=== PATIENT | female | born 1955 | race Asian ===

== ENCOUNTER 2018-06-01 05:35 | Inpatient (IN) ==
[2018-06-01] MEDS ORDERED: Chlorhexidine 4% Topical 120 APPLIC/120 ML Bottle TOPICAL SCH (06:45)
[2018-06-01] MEDS ORDERED: Bupivacaine/Epi PF 0.25% Inj 20 ML, Bupivacaine Liposo PF 1.3% Inj 20 ML, Sodium Chlor ... P-ARTICULR SCH ×2 (06:45)
[2018-06-01] MEDS ORDERED: Sodium Chlor 0.9% Inj 250 ML ONE (06:46)
[2018-06-01] MEDS ORDERED: Bupivacaine/Epinephrine PF Inj 0.5% 30 ML Vial ONE (06:57)
[2018-06-01] MEDS ORDERED: Bupivacaine/Epinephrine Inj 0.25% 50 ML Vial ONE (06:59)
[2018-06-01] MEDS ORDERED: TRANEXAMIC ACID IV.SIG SCH (07:00)
[2018-06-01] MEDS ORDERED: SODIUM CHLOR 0.9% IV.SIG SCH (07:00)
[2018-06-01] MEDS ORDERED: Metoprolol Tartrate 25 MG Tablet PO ONE (07:00)
[2018-06-01] MEDS ORDERED: Sodium Chlor 0.9% Inj 500 ML IV.CONT ONE (07:00)
[2018-06-01] MEDS ORDERED: Vancomycin Inj 1,000 MG in Sodium Chlor 0.9% Inj 250 ML IV.SIG SCH (07:00)
[2018-06-01] MEDS ORDERED: Chlorhexidine Gluconate 2% 1 Pack (2 Cloths) TOPICAL ONE (07:00)
[2018-06-01] MEDS ORDERED: ceFAZolin 2 GM Premix Inj 2 GM/50 ML PIGGYBACK IV.SIG SCH (07:00)
[2018-06-01] MEDS ORDERED: Sodium Chloride 0.9% 2 ML Flush PRN IV.FLUSH (07:20)
[2018-06-01] MEDS ORDERED: Phenylephrine/NS 1000 MCG/10ML Syringe IV.PUSH ONE (07:21)
[2018-06-01] MEDS ORDERED: Bisacodyl 10 MG Supp RECTAL PRN (07:46)
[2018-06-01] MEDS ORDERED: Post-op Orders (for Pharmacy) OTHER STA (07:46)
--- NOTE | 2018-06-01 07:49 | P.DCO ---
- Physical Therapy Physical Therapy: Gait training Knee: Total knee, Full weight bearing Canvas Knee Splint: Other (At night for 4 weeks) Left Lower Extremity Weight Bearing: Weight bearing as tolerated - Nursing RN: 3 days/week x 2 weeks Dressing changes: Do not change dressing (Unless saturated. If saturated, alcohol dressing daily) - Certification Need for Home Health services: I have seen patient Thomas Pugh on 06/01/18. My clinical findings support the need for the requested home health care services because: Need for Home Health Services: High risk of falls Homebound Certification: I certify that my clinical findings support that this patient is homebound because: Homebound Certification: Unsteady gait/balance
--- NOTE | 2018-06-01 09:28 | P.OP ---
- Preoperative Diagnosis (1) Osteoarthritis of left knee - Postoperative Diagnosis (1) Osteoarthritis of left knee Date of procedure: 06/01/18 Procedure: Left total knee replacement arthroplasty Anesthesia: GETA Surgeon: Addy Johnson MD Automobile Parker: KIRSTEN Roche Operation and Findings: EBL: 50 cc INDICATION: This patient presents with long-standing arthritis of the knee. Attachment record documents conservative measures. The patient now presents for surgical treatment. NOTE: Maria E Govea PA-C was present for the entire surgical procedure as my physiotherapy assistant. In my medical opinion her skill and care was necessary for proper management of this patient. TOURNIQUET TIME: 65 minutes COMPANY: [employer] FEMUR: Size 5, left, posterior stabilized TIBIA: Size 4, fixed-bearing PATELLA: 32 mm POLYETHYLENE INSERT: 10 mm PROCEDURE: This patient was brought the operating room and anesthetized in the supine position. The patient was positioned supine on the table. The tourniquet was placed about the thigh, and the leg was scrubbed with alcohol followed by Hibiclens followed by ChloraPrep and draped sterilely. A timeout was done, and antibiotics were given. After exsanguination the tourniquet was inflated to 250 mmHg. An anterior incision was made and a median parapatellar arthrotomy was performed. The patella was released laterally and subluxed allowing freehand cut of the patella which was then sized. A metal cap was placed over the exposed patellar surface for protection. A pilot plant research technician hole was placed in the distal femur allowing a 5 valgus cut removing 10 mm from the distal femur. Anterior posterior and chamfer cuts were made. The posterior stabilize osteotomy was made. The attention was directed to the tibia. Retractors were positioned. The external alignment guide was used allowing the lateral tibia to be used as referencing guide and cut utilizing an oscillating saw taking care to avoid any injury to the surrounding soft tissues. This was sized properly. Trial reduction showed that the insert fit nicely. The patient had range of motion extension 0 flexion 120. A medial release was not necessary. The bony surfaces prepared. On the back table 2 packets of methylmethacrylate were mixed. The components were cemented. Excess cement was removed. The tourniquet let down and hemostasis was controlled. The final plastic insert was inserted. Range of motion was the same as previously noted. A drain was brought through a separate stab incision. The arthrotomy was repaired with interrupted #1 Vicryl suture, subcutaneous tissue 2-0 Vicryl suture and skin with metallic simone A sterile dressing was applied. Sponge counts, needle counts and instrument counts were all correct. The patient tolerated procedure well and was taken to recovery in satisfactory condition. FINDINGS: There was severe osteoarthritis. Large circumferential osteophytes were noted. A large posterior osteophyte was seen posterior on the lateral side. The final solution appeared to be excellent.
[2018-06-01] MEDS ORDERED: fentaNYL Citrate Inj 100 MCG/2 ML Ampul ONE (10:03)
[2018-06-01] MEDS ORDERED: *Meperidine Inj 25 MG/ML Vial PERIprocedural Use ONLY ONE (10:20)
--- NOTE | 2018-06-01 10:55 | XR ---
EXAM DATE: 06/01/2018 10:51 AM EST AGE/SEX: 62 years / Female INDICATIONS: Post op left knee surgery. CLINICAL DATA: This is the patient's initial encounter. Patient reports that signs and symptoms have been present for 1 day and indicates a pain score of Nonresponsive. MEDICAL/SURGICAL HISTORY: Non-responsive. Non-responsive. COMPARISON: . FINDINGS: Total knee arthroplasty is in satisfactory position. The alignment is anatomic. CONCLUSION: Postsurgical changes as above. Electronically signed by: Oumar Cottrell MD 06/01/2018 10:54 AM EST
[2018-06-01] MEDS ORDERED: Morphine Inj 4 MG/ML Vial IV.PUSH PRN (12:00)
[2018-06-01] MEDS: ceFAZolin 1 GM Premix Inj 1 GM/50 ML FROZ.PIGGY IV.SIG SCH ×2 (13:00→18:12)
[2018-06-01] MEDS: Montelukast 10 MG Tablet PO SCH (17:26)
[2018-06-01] MEDS: Senna/Docusate Sodium 8.6/50 MG Tablet PO SCH (21:16)
[2018-06-01] MEDS: Zolpidem Tartrate 5 MG Tablet PO SCH (21:16)
[2018-06-01] MEDS: Escitalopram 10 MG Tablet PO SCH (21:17)
[2018-06-01] MEDS: Multivitamin/Minerals Therapeutic Tablet PO SCH (21:18)
[2018-06-01] MEDS: Sodium Chloride 0.9% 2 ML Flush BID IV.FLUSH SCH (22:11)
[2018-06-02] MEDS: ceFAZolin 1 GM Premix Inj 1 GM/50 ML FROZ.PIGGY IV.SIG SCH (00:36)
[2018-06-02] MEDS: Senna/Docusate Sodium 8.6/50 MG Tablet PO SCH ×2 (09:24→21:19)
[2018-06-02] MEDS: Multivitamin/Minerals Therapeutic Tablet PO SCH ×2 (09:25→21:19)
[2018-06-02] MEDS: Sodium Chloride 0.9% 2 ML Flush BID IV.FLUSH SCH ×2 (09:27→21:47)
--- NOTE | 2018-06-02 13:32 | P.PNOP ---
Subjective Interval history: Patient does not speak singaporean. She is accompanied by her son who speaks little singaporean. He states she has pain but can not articulate further. Patient does not appear in distress. RN states she did as expected through the evening. Physical Exam Vital signs: Vital Signs 06/01/18 15:52 06/01/18 20:00 06/01/18 21:21 Temperature 97.8 F 97.4 F L Pulse Rate 69 72 Respiratory Rate 18 20 18 Blood Pressure 137/68 114/59 L Pulse Oximetry 99 96 06/01/18 21:51 06/01/18 23:30 06/02/18 00:00 Temperature 97.6 F Pulse Rate 71 Respiratory Rate 18 18 20 Blood Pressure 103/56 L Pulse Oximetry 94 L 06/02/18 04:00 06/02/18 05:25 06/02/18 05:55 Temperature 98.2 F Pulse Rate 72 Respiratory Rate 20 18 18 Blood Pressure 94/51 L Pulse Oximetry 95 06/02/18 08:00 Temperature 97.8 F Pulse Rate 69 Respiratory Rate 18 Blood Pressure 111/51 L Pulse Oximetry 95 Intake & Output 06/01/18 06/02/18 06/02/18 18:59 06:59 18:59 Intake Total 1650 / 1650 1220 / 1220 Output Total 1050 / 1050 Balance 600 / 600 1220 / 1220 Weight 69.4 kg Intake: IV 50 / 50 1100 / 1100 LR 1000 mL Inj 1,000 ML @ 80 1000 / 1000 mls/hr IV.CONT .[id number] [facility] Rx# :[id number] Ancef 1 GM Premix Inj 1 gm In 50 / 50 100 / 100 50 ml @ 100 mls/hr IV.SIG Q6H [facility] Rx#:[id number] Oral 120 / 120 Anesthesia Amount 1600 / 1600 Output: Estimated Blood Loss 50 / 50 Urine Amount (Catheter) 1000 / 1000 Straight 1000 / 1000 Other: # Voids 3 1 Date of Last Bowel Movement 05/31/18 Weight On Admission 63.3 kg Narrative: Laying in bed NAD With son LLE Knee dressing c/d/i, mild warmth, no erythema +motor at, +sens, +nvi Neg homans - Constitutional no acute distress - Urinary Catheter Management Straight Cath placed during this visit: yes, but has since been removed by the nurse Reason for continuing: Not indwelling catheter Insertion date: 06/01/18 Insertion time: 10:15 Removal date: 06/01/18 Removal time: 10:45 Results - Procedures Left total knee arthroplasty Assessment and Plan - Ortho Post Op Day # 1 - Assessment and Plan pod#1 s/p L TKA Difficulty communicating due to language barrier. She appears to be in moderate pain. Hold discharge until tomorrow - home w [facility]. PT - WBAT. L TKA. ASA 81mg. Hold dressing changes unless saturated. PO pain meds as needed. Ice bid. F/U in 2 weeks as scheduled.
[2018-06-02] MEDS: Montelukast 10 MG Tablet PO SCH (19:54)
[2018-06-02] MEDS: Escitalopram 10 MG Tablet PO SCH (21:18)
[2018-06-02] MEDS: Zolpidem Tartrate 5 MG Tablet PO SCH (21:19)
[2018-06-03] MEDS: Senna/Docusate Sodium 8.6/50 MG Tablet PO SCH (09:56)
[2018-06-03] MEDS: Multivitamin/Minerals Therapeutic Tablet PO SCH (09:56)
[2018-06-03] MEDS: Sodium Chloride 0.9% 2 ML Flush BID IV.FLUSH SCH (09:58)
[2018-06-03 13:45] VITALS: BP 102/52; PULSE 65; RESP 18; TEMP 97.3; O2SAT 95
== END 2018-06-03 15:06 | disposition home health service (06) ==
LOC: HSDI 05:35 → N06 11:00
PROVIDERS: ADMIT Orthopaedic Surgery Orthopaedic Surgery of the Spine; ATTEND Orthopaedic Surgery Orthopaedic Surgery of the Spine

== ENCOUNTER 2018-06-08 19:23 | Inpatient (IN) ==
--- NOTE | 2018-06-08 20:14 | ED ---
HPI General Chief complaint: Fever Stated complaint: Knee Pain Time Seen by Provider: 06/08/18 19:56 Source: patient and family Limitations: no limitations History of Present Illness HPI narrative: The patient is a 62 year old female who presents to the [facility] emergency department with a history of reportedly feeling unwell since yesterday. She is recently postop status post left knee replacement on June 01, [address] Addy Johnson. Her follow-up appointment is scheduled for June 14. The patient reports that since yesterday she developed swelling, pain, increased ecchymosis down into the calf, ankle, and foot. She denies any new injuries. She reports that she has had subjective fevers and her home health nurse earlier today took her temperature which was elevated to 101. She reports that since having the surgery she is on a low-dose aspirin daily. She is not on any other anticoagulation. She reports taking hydrocodone as needed for pain. She is not on any other medications. She reports that since having the surgery she has noticed that when she coughs she has a pain in the left lateral chest. She denies having any shortness of breath. On review of systems otherwise, the patient denies having any congestion, neck pain, abdominal pain, vomiting, or neurologic symptoms. Patient denies having any dysuria or urinary urgency, however she does report having urinary frequency recently. The patient additionally reports having a single episode of loose stools earlier today. Related Data Home Medications Medication Instructions Recorded Confirmed hydrocodone-acetaminophen 1 tab PO BID PRN 05/27/18 06/08/18 Previous Rx's Medication Instructions Recorded aspirin 81 mg PO BID #60 tab 06/01/18 hydrocodone-acetaminophen 1 tab PO Q4H PRN #42 tab 06/01/18 Allergies Allergy/AdvReac Type Severity Reaction Status Date / Time meloxicam [From Mobic] Allergy Intermediate Itching Verified 06/08/18 19:31 Review of Systems ROS: all other systems reviewed are negative [facility] Social History Social History Substance History: No History of Abuse Second Hand Smoke Exposure: No Smoking Status: Never smoker How Often Do You Have a Drink Containing Alcohol: Never Recent Travel in [facility] within the Last 8 Weeks: No Recent Out of Country Travel within the Last 8 Weeks: No Exam Const General: cooperative, no acute distress and well developed Nutritional Appearance: well nourished Orientation: alert, awake and oriented x3 HENMT Head: normocephalic and atraumatic Nose: no nasal discharge and no epistaxis Mouth: moist mucous membranes Eyes Sclera: normal sclerae Pupils: PERRL Neck Neck: trachea midline and no JVD Chest Chest: no tenderness Resp Effort & Inspection: no use of accessory muscles Auscultation: clear to auscultation bilaterally Cardio Rate: regular rate Rhythm: regular rhythm Heart Sounds: no murmurs GI Inspection: non-distended Palpation: soft, no hepatosplenomegaly and nontender Back/Spine/Pelvis Back: no CVA tenderness Skin General: dry skin (warm) Neuro General: alert, awake and other (Grossly non-focal.) Speech: speech normal Motor: no movement abnormalities noted Extrem General: normal to inspection (2+ pulses in all 4 extremities.), no calf tenderness, no clubbing, no cyanosis and edema (The patient has 2+ pitting edema of the left lower extremity on exam with ecchymosis from the thigh down to the foot. The patient has soft compartments. The patient has intact sensation over all digits. The patient has less than 3-second capillary refill. The patient does however have calf tende) Laterality: bilaterally Psych Mood: congruent mood Affect: normal affect Judgment: judgment good Course Initial Documented Vital Signs Temperature 98.6 F 06/08/18 19:26 Pulse Rate 68 06/08/18 19:26 Respiratory Rate 16 06/08/18 19:26 Blood Pressure 143/63 H 06/08/18 19:26 Pulse Oximetry 100 06/08/18 19:26 Last Documented Vital Signs Temperature 97.7 F 06/10/18 07:52 Pulse Rate 60 06/10/18 07:52 Respiratory Rate 16 06/10/18 07:52 Blood Pressure 159/70 H 06/10/18 07:52 Pulse Oximetry 98 06/10/18 07:52 Medical Decision Making MDM Narrative Medical decision making narrative: During the course of the patient's emergency department visit, the patient's history, examination, and differential diagnosis were reviewed with the patient. The patient was placed on a monitor worker with oximetry and frequent blood pressure monitoring. The patient had IV access obtained and blood work sent for analysis. Diagnostic evaluation was started regarding the patient's increased left leg pain and swelling. The patient was initially provided normal saline IV fluids, broad-spectrum antibiotic to include Zosyn and vancomycin. The patient's diagnostic studies are remarkable for white count of 5.2, hemoglobin 8.7, platelets 328.9 monocytes, PT PTT within normal limits, chemistry is remarkable for an alk phos of 140, CPK 65, troponin less than 0.02 , C-reactive protein 3.5, lipase within normal limits. Lactic acid is 1.0 urinalysis is unremarkable patient's chest x-ray showed no acute cardiopulmonary disease, left leg Doppler reveals no evidence of DVT.. The patient's case including history, pertinent physical examination findings, and laboratory studies were discussed with Dr. Rueda. It was agreed that the patient would be admitted to the [facility] hospitalist service. The patient's results were discussed with the patient, including the plan of care. I explained that further testing and/ or monitoring is indicated based on the patient's history, examination, and/ or laboratory findings. Therefore, I recommended admission for additional evaluation. The patient expressed understanding and was agreeable with this plan. The patient was admitted to the hospital in stable condition and sent to a bed under the care of the [facility] hospitalist service.. Medical Screen Exam Complete: Yes Emergency Medical Condition: Yes Differential Diagnosis Differential Diagnosis: Cellulitis, versus hardware infection, versus DVT Medical Records Medical records reviewed: Yes I reviewed the patient's medical records. Lab Data Lab results reviewed: Yes I reviewed the patient's lab results. Result diagrams: 06/10/18 03:28 06/10/18 03:28 Lab Results 06/08/18 06/08/18 06/08/18 Range/Units 20:15 20:30 20:30 WBC 5.2 (4.0-11.0) th/mm3 RBC 2.86 L (4.00-5.30) mil/mm3 Hgb 8.7 L (11.6-15.3) gm/dL Hct 25.3 L (35.0-46.0) % MCV 88.7 (80.0-100.0) fL MCH 30.4 (27.0-34.0) pg MCHC 34.2 (32.0-36.0) % RDW 14.2 (11.6-17.2) % Plt Count 320 (150-450) th/mm3 MPV 7.5 (7.0-11.0) fL Neut % (Auto) 56.4 (16.0-70.0) % Lymph % (Auto) 30.9 (9.0-44.0) % Baker % (Auto) 8.9 H (0.0-8.0) % Eos % (Auto) 3.3 (0.0-4.0) % Baso % (Auto) 0.5 (0.0-2.0) % Neut # (Auto) 2.9 (1.8-7.7) th/mm3 Lymph # (Auto) 1.6 (1.0-4.8) th/mm3 Baker # (Auto) 0.5 (0.0-0.9) th/mm3 Eos # (Auto) 0.2 (0.0-0.4) th/mm3 Baso # (Auto) 0.0 (0.0-0.2) th/mm3 WBC Differential . Differential Comment Auto diff final ESR (0-30) mm/hr PT 10.3 (9.8-11.6) sec INR 1.0 Ratio APTT 28.7 (23.4-31.7) sec Sodium (136-145) meq/L Potassium (3.5-5.1) meq/L Chloride (98-107) meq/L Carbon Dioxide (21.0-32.0) meq/L Anion Gap (5-15) meq/L BUN (7-18) mg/dL Creatinine (0.50-1.00) mg/dL Estimated GFR (>89) mL/min Random Glucose (74-106) mg/dL Lactic Acid (0.4-2.0) mmol/L Calcium (8.5-10.1) mg/dL Magnesium (1.5-2.5) mg/dL Total Bilirubin (0.2-1.0) mg/dL AST (15-37) U/L ALT (10-53) U/L Alkaline Phosphatase (45-117) U/L Total Creatine Kinase (26-192) U/L Troponin I (0.02-0.05) ng/mL C-Reactive Protein (0.00-0.30) mg/dL Total Protein (6.4-8.2) g/dL Albumin (3.4-5.0) g/dL Lipase (73-393) U/L Urine Color Colorless (Yellw/Straw) Urine Clarity Clear (Clear) Urine pH 7.0 (5.0-8.5) Ur Specific [place] 1.002 (1.002-1.035) Urine Protein Negative (Neg-Trace) mg/dL Urine Glucose (UA) Negative (Negative) mg/dL Urine Ketones Negative (Negative) mg/dL Urine Occult Blood Negative (Negative) Urine Nitrate Negative (Negative) Urine Bilirubin Negative (Negative) Urine Urobilinogen Less than 2 (Less than 2) mg/dL Ur Leukocyte Esterase Small H (Negative) Urine WBC 1 (0-5) /hpf Ur Squamous Epith Cells <1 (0-5) /hpf Urine Bacteria Rare H (None) /hpf Urine Mucus Few H (Occasional) /lpf Micro UA Comment Culture not ind Ur Microscopic Review Not Reportable Urine Culture Comments Culture not ind Blood Type Antibody Screen MTS Gel Crossmatch Bld Prod Order Comment 06/08/18 06/08/18 06/08/18 Range/Units 20:30 20:30 20:30 WBC (4.0-11.0) th/mm3 RBC (4.00-5.30) mil/mm3 Hgb (11.6-15.3) gm/dL Hct (35.0-46.0) % MCV (80.0-100.0) fL MCH (27.0-34.0) pg MCHC (32.0-36.0) % RDW (11.6-17.2) % Plt Count (150-450) th/mm3 MPV (7.0-11.0) fL Neut % (Auto) (16.0-70.0) % Lymph % (Auto) (9.0-44.0) % Baker % (Auto) (0.0-8.0) % Eos % (Auto) (0.0-4.0) % Baso % (Auto) (0.0-2.0) % Neut # (Auto) (1.8-7.7) th/mm3 Lymph # (Auto) (1.0-4.8) th/mm3 Baker # (Auto) (0.0-0.9) th/mm3 Eos # (Auto) (0.0-0.4) th/mm3 Baso # (Auto) (0.0-0.2) th/mm3 WBC Differential Differential Comment ESR 85 H (0-30) mm/hr PT (9.8-11.6) sec INR Ratio APTT (23.4-31.7) sec Sodium 139 (136-145) meq/L Potassium 4.1 (3.5-5.1) meq/L Chloride 104 (98-107) meq/L Carbon Dioxide 25.9 (21.0-32.0) meq/L Anion Gap 9 (5-15) meq/L BUN 15 (7-18) mg/dL Creatinine 0.67 (0.50-1.00) mg/dL Estimated GFR 89 (>89) mL/min Random Glucose 99 (74-106) mg/dL Lactic Acid 1.0 (0.4-2.0) mmol/L Calcium 8.6 (8.5-10.1) mg/dL Magnesium 2.4 (1.5-2.5) mg/dL Total Bilirubin 0.8 (0.2-1.0) mg/dL AST 20 (15-37) U/L ALT 29 (10-53) U/L Alkaline Phosphatase 140 H (45-117) U/L Total Creatine Kinase 65 (26-192) U/L Troponin I Less than 0.02 L (0.02-0.05) ng/mL C-Reactive Protein 3.50 H (0.00-0.30) mg/dL Total Protein 7.7 (6.4-8.2) g/dL Albumin 3.4 (3.4-5.0) g/dL Lipase 83 (73-393) U/L Urine Color (Yellw/Straw) Urine Clarity (Clear) Urine pH (5.0-8.5) Ur Specific [place] (1.002-1.035) Urine Protein (Neg-Trace) mg/dL Urine Glucose (UA) (Negative) mg/dL Urine Ketones (Negative) mg/dL Urine Occult Blood (Negative) Urine Nitrate (Negative) Urine Bilirubin (Negative) Urine Urobilinogen (Less than 2) mg/dL Ur Leukocyte Esterase (Negative) Urine WBC (0-5) /hpf Ur Squamous Epith Cells (0-5) /hpf Urine Bacteria (None) /hpf Urine Mucus (Occasional) /lpf Micro UA Comment Ur Microscopic Review Urine Culture Comments Blood Type Antibody Screen MTS Gel Crossmatch Bld Prod Order Comment 06/09/18 06/09/18 06/09/18 Range/Units 07:43 07:43 16:46 WBC 4.2 (4.0-11.0) th/mm3 RBC 2.47 L (4.00-5.30) mil/mm3 Hgb 7.7 L (11.6-15.3) gm/dL Hct 22.2 L (35.0-46.0) % MCV 90.1 (80.0-100.0) fL MCH 31.1 (27.0-34.0) pg MCHC 34.5 (32.0-36.0) % RDW 14.1 (11.6-17.2) % Plt Count 282 (150-450) th/mm3 MPV 7.6 (7.0-11.0) fL Neut % (Auto) 46.5 (16.0-70.0) % Lymph % (Auto) 39.5 (9.0-44.0) % Baker % (Auto) 9.5 H (0.0-8.0) % Eos % (Auto) 3.9 (0.0-4.0) % Baso % (Auto) 0.6 (0.0-2.0) % Neut # (Auto) 2.0 (1.8-7.7) th/mm3 Lymph # (Auto) 1.7 (1.0-4.8) th/mm3 Baker # (Auto) 0.4 (0.0-0.9) th/mm3 Eos # (Auto) 0.2 (0.0-0.4) th/mm3 Baso # (Auto) 0.0 (0.0-0.2) th/mm3 WBC Differential . Differential Comment Auto diff final ESR (0-30) mm/hr PT (9.8-11.6) sec INR Ratio APTT (23.4-31.7) sec Sodium 141 (136-145) meq/L Potassium 3.6 (3.5-5.1) meq/L Chloride 107 (98-107) meq/L Carbon Dioxide 27.7 (21.0-32.0) meq/L Anion Gap 6 (5-15) meq/L BUN 10 (7-18) mg/dL Creatinine 0.66 (0.50-1.00) mg/dL Estimated GFR Greater than 89 (>89) mL/min Random Glucose 87 (74-106) mg/dL Lactic Acid (0.4-2.0) mmol/L Calcium 7.9 L (8.5-10.1) mg/dL Magnesium (1.5-2.5) mg/dL Total Bilirubin (0.2-1.0) mg/dL AST (15-37) U/L ALT (10-53) U/L Alkaline Phosphatase (45-117) U/L Total Creatine Kinase (26-192) U/L Troponin I (0.02-0.05) ng/mL C-Reactive Protein (0.00-0.30) mg/dL Total Protein (6.4-8.2) g/dL Albumin (3.4-5.0) g/dL Lipase (73-393) U/L Urine Color (Yellw/Straw) Urine Clarity (Clear) Urine pH (5.0-8.5) Ur Specific [place] (1.002-1.035) Urine Protein (Neg-Trace) mg/dL Urine Glucose (UA) (Negative) mg/dL Urine Ketones (Negative) mg/dL Urine Occult Blood (Negative) Urine Nitrate (Negative) Urine Bilirubin (Negative) Urine Urobilinogen (Less than 2) mg/dL Ur Leukocyte Esterase (Negative) Urine WBC (0-5) /hpf Ur Squamous Epith Cells (0-5) /hpf Urine Bacteria (None) /hpf Urine Mucus (Occasional) /lpf Micro UA Comment Ur Microscopic Review Urine Culture Comments Blood Type AB Positive Antibody Screen Negative MTS Gel Crossmatch See Detail Bld Prod Order Comment 06/10/18 06/10/18 Range/Units 03:28 03:28 WBC 4.7 (4.0-11.0) th/mm3 RBC 3.45 L (4.00-5.30) mil/mm3 Hgb 10.5 L D (11.6-15.3) gm/dL Hct 30.3 L (35.0-46.0) % MCV 87.6 (80.0-100.0) fL MCH 30.4 (27.0-34.0) pg MCHC 34.7 (32.0-36.0) % RDW 14.7 (11.6-17.2) % Plt Count 297 (150-450) th/mm3 MPV 7.5 (7.0-11.0) fL Neut % (Auto) 63.9 (16.0-70.0) % Lymph % (Auto) 23.7 (9.0-44.0) % Baker % (Auto) 8.5 H (0.0-8.0) % Eos % (Auto) 3.3 (0.0-4.0) % Baso % (Auto) 0.6 (0.0-2.0) % Neut # (Auto) 3.0 (1.8-7.7) th/mm3 Lymph # (Auto) 1.1 (1.0-4.8) th/mm3 Baker # (Auto) 0.4 (0.0-0.9) th/mm3 Eos # (Auto) 0.2 (0.0-0.4) th/mm3 Baso # (Auto) 0.0 (0.0-0.2) th/mm3 WBC Differential . Differential Comment Auto diff final ESR (0-30) mm/hr PT (9.8-11.6) sec INR Ratio APTT (23.4-31.7) sec Sodium 141 (136-145) meq/L Potassium 3.7 (3.5-5.1) meq/L Chloride 107 (98-107) meq/L Carbon Dioxide 27.5 (21.0-32.0) meq/L Anion Gap 7 (5-15) meq/L BUN 10 (7-18) mg/dL Creatinine 0.62 (0.50-1.00) mg/dL Estimated GFR Greater than 89 (>89) mL/min Random Glucose 118 H (74-106) mg/dL Lactic Acid (0.4-2.0) mmol/L Calcium 8.1 L (8.5-10.1) mg/dL Magnesium 2.3 (1.5-2.5) mg/dL Total Bilirubin (0.2-1.0) mg/dL AST (15-37) U/L ALT (10-53) U/L Alkaline Phosphatase (45-117) U/L Total Creatine Kinase (26-192) U/L Troponin I (0.02-0.05) ng/mL C-Reactive Protein (0.00-0.30) mg/dL Total Protein (6.4-8.2) g/dL Albumin (3.4-5.0) g/dL Lipase (73-393) U/L Urine Color (Yellw/Straw) Urine Clarity (Clear) Urine pH (5.0-8.5) Ur Specific [place] (1.002-1.035) Urine Protein (Neg-Trace) mg/dL Urine Glucose (UA) (Negative) mg/dL Urine Ketones (Negative) mg/dL Urine Occult Blood (Negative) Urine Nitrate (Negative) Urine Bilirubin (Negative) Urine Urobilinogen (Less than 2) mg/dL Ur Leukocyte Esterase (Negative) Urine WBC (0-5) /hpf Ur Squamous Epith Cells (0-5) /hpf Urine Bacteria (None) /hpf Urine Mucus (Occasional) /lpf Micro UA Comment Ur Microscopic Review Urine Culture Comments Blood Type Antibody Screen MTS Gel Crossmatch Bld Prod Order Comment Imaging Data Radiologist's impression: Chest X-Ray 06/08/18 20:06 CONCLUSION: The lungs are clear. Venous Doppler Study 06/08/18 20:06 CONCLUSION: 1. The study is negative for lower extremity deep venous thrombosis. Knee X-Ray 06/09/18 00:00 CONCLUSION: Soft tissue swelling without significant joint effusion ECG Data Attestation: I personally reviewed and interpreted this ECG as follows: Interpretation: The patient had a EKG done on arrival. The patient's EKG shows a sinus rhythm heart rate of 61, QRS duration 82 ms, QTC [address] segment elevation. T waves are flattened in lead III, inverted in V2. Discharge Plan Discharge Disposition Patient Disposition: 30 Still Patient Discharge Details Diagnosis: Postoperative infection Physicians Team ED Provider: Ambika Hartley Primary Care Provider: Staci Crawford Attending Provider: Branden Crowley Other Providers: Wily Morse ; [facility] Discharge Interventions Interventions: ED Discharge Assessment Last Done: 06/09/18 00:39 Status ED Status: Left Department Discharge Information Discharge Date/Time: 06/09/18 00:46
--- NOTE | 2018-06-08 20:48 | XR ---
EXAM DATE: 06/08/2018 8:42 PM EST AGE/SEX: 62 years / Female INDICATIONS: Shortness of breath, dizziness. Patient also complaining of left knee pain. CLINICAL DATA: This is the patient's initial encounter. Patient reports that signs and symptoms have been present for 1 day and indicates a pain score of 7/10. MEDICAL/SURGICAL HISTORY: None. None. COMPARISON: No prior exams available for comparison. FINDINGS: A single AP view of the chest demonstrates the lungs to be symmetrically aerated without evidence of mass, infiltrate or effusion. The cardiomediastinal contours are unremarkable. Osseous structures a re intact. CONCLUSION: The lungs are clear. Electronically signed by: Josse Schmidt MD 06/08/2018 8:47 PM EST
[2018-06-08 21:09] LABS: Baso % (Auto) 0.5 % (0.0-2.0); Eos # (Auto) 0.2 th/mm3 (0.0-0.4); Eos % (Auto) 3.3 % (0.0-4.0); Hematocrit 25.3 % (35.0-46.0); Hemoglobin 8.7 gm/dL (11.6-15.3); Lymph # (Auto) 1.6 th/mm3 (1.0-4.8); Lymph % (Auto) 30.9 % (9.0-44.0); Mean Corpuscular HGB Conc 34.2 % (32.0-36.0); Mean Corpuscular Hemoglobin 30.4 pg (27.0-34.0); Mean Corpuscular Volume 88.7 fL (80.0-100.0); Mean Platelet Volume 7.5 fL (7.0-11.0); Mono # (Auto) 0.5 th/mm3 (0.0-0.9); Mono % (Auto) 8.9 % (0.0-8.0); Neut # (Auto) 2.9 th/mm3 (1.8-7.7); Neut % (Auto) 56.4 % (16.0-70.0); Platelet Count 320 th/mm3 (150-450); Red Blood Count 2.86 mil/mm3 (4.00-5.30); Red Cell Distribution Width 14.2 % (11.6-17.2); White Blood Count 5.2 th/mm3 (4.0-11.0)
[2018-06-08 21:14] LABS: Bacteria,Urine Rare /hpf; Bilirubin,Urine Negative (Negative); Clarity,Urine Clear (Clear); Color,Urine Colorless (Yellw/Straw); Glucose,Urine (UA) Negative (Negative); Leukocyte Esterase,Urine Small (Negative); Mucus,Urine Few /lpf (Occasional); Nitrite,Urine Negative (Negative); Specific Gravity,Urine 1.002 (1.002-1.035); Squamous Epithelial Cell,Urine <1 /hpf (0-5)
[2018-06-08 21:21] LABS: Activated Partial Thrombo Time 28.7 sec (23.4-31.7); Prothrombin Time 10.3 sec (9.8-11.6)
[2018-06-08 21:32] LABS: Alanine Aminotransferase 29 U/L (10-53); Albumin 3.4 g/dL (3.4-5.0); Anion Gap 9 meq/L (5-15); Aspartate Aminotransferase 20 U/L (15-37); Blood Urea Nitrogen 15 mg/dL (7-18); Calcium 8.6 mg/dL (8.5-10.1); Carbon Dioxide 25.9 meq/L (21.0-32.0); Chloride 104 meq/L (98-107); Glomerular Filtration Rate 89 mL/min (>89); Glucose,Random 99 mg/dL (74-106); Lipase 83 U/L (73-393); Magnesium 2.4 mg/dL (1.5-2.5); Potassium 4.1 meq/L (3.5-5.1); Sodium 139 meq/L (136-145)
[2018-06-08 21:35] LABS: Alkaline Phosphatase 140 U/L (45-117); Total Protein 7.7 g/dL (6.4-8.2)
[2018-06-08 21:36] LABS: Creatine Kinase 65 U/L (26-192)
--- NOTE | 2018-06-08 22:11 | US ---
EXAM DATE: 06/08/2018 10:06 PM EST AGE/SEX: 62 years / Female INDICATIONS: Left leg pain. CLINICAL DATA: This is the patient's initial encounter. Patient reports that signs and symptoms have been present for 4 - 6 days and indicates a pain score of 6/10. MEDICAL/SURGICAL HISTORY: Gastroesophageal reflux disease. . Knee replacement. COMPARISON: No prior exams available for comparison. TECHNIQUE: Venous ultrasound of both lower extremities was performed from the inguinal ligament to t he proximal calf. Real-time, color Doppler and spectral tracing, compression and augmentation techni ques were used. FINDINGS: Normal compression of the deep venous system from the inguinal region to the proximal calf . No echogenic clot is seen. Normal response of the venous system to augmentation and respiration. CONCLUSION: 1. The study is negative for lower extremity deep venous thrombosis. Electronically signed by: Josse Schmidt MD 06/08/2018 10:09 PM EST
[2018-06-08] MEDS ORDERED: Piperacil/Tazo 3.375 GM Premix 50 ML IV.SIG ONE (22:13)
[2018-06-08] MEDS ORDERED: Sod Chloride 0.9% Inj 1,000 ML IV.SIG ONE (22:13)
[2018-06-08] MEDS ORDERED: Vancomycin Inj 1,000 MG in Sodium Chlor 0.9% Inj 250 ML IV.SIG ONE (22:14)
[2018-06-08] MEDS ORDERED: Piperacil/Tazo 3.375 GM Premix 50 ML IV.SIG SCH (23:27)
[2018-06-08] MEDS ORDERED: Acetaminophen 325 MG Tablet PO PRN (23:28)
[2018-06-08] MEDS ORDERED: Bisacodyl 10 MG Supp RECTAL PRN (23:28)
[2018-06-08] MEDS ORDERED: Vancomycin Consult Pharmacy 1 EACH OTHER SCH (23:30)
--- NOTE | 2018-06-08 23:40 | P.HP ---
History of Present Illness Service: [facility] Hospitalist Primary Care Physician: Staci Crawford Chief Complaint: pain swelling hot left knee History of Present Illness: The patient is a 62 year old f women presents to the [facility] emergency department with a history of reportedly feeling unwell since yesterday. She is recently postop status post left knee replacement on June 01, [address] Addy Johnson. Her follow-up appointment is scheduled for June 14. The patient reports that since yesterday she developed swelling, pain, increased ecchymosis down into the calf, ankle, and foot. She denies any new injuries. She reports that she has had subjective fevers and her home health nurse earlier today took her temperature which was elevated to 101. She reports that since having the surgery she is on a low-dose aspirin daily. She is not on any other anticoagulation. She reports taking hydrocodone as needed for pain. She is not on any other medications. She reports that since having the surgery she has noticed that when she coughs she has a pain in the left lateral chest. She denies having any shortness of breath. On review of systems otherwise, the patient denies having any congestion, neck pain, abdominal pain, vomiting, or neurologic symptoms. Patient denies having any dysuria or urinary urgency, however she does report having urinary frequency recently. The patient additionally reports having a single episode of loose stools earlier today. Based on clinical presentation will admit for IV antibiotics and consult to orthopedics . - Diagnosis (1) Cellulitis (2) S/P left knee surgery Inpatient Certification: I certify that the inpatient services were ordered in accordance with Medicare regulations governing the order. This includes certification that hospital inpatient services are reasonable and necessary and in the case of services not specified as inpatient-only under 42 CFR 419.22(n), that they are appropriately provided as inpatient services in accordance to with the 2-midnight benchmark under 43 CFR 412.3(e) Estimated Total Length of Stay (Days): 3 Plans for Post Hospital Care: Not yet determined Review of Systems All other systems reviewed negative except as stated in [facility] - History History Provided By: Patient - Medical History Medical History: Medical History (Last Reviewed 06/08/18 @ 23:35 by Kenny Martínez MD) Anxiety and depression GERD (gastroesophageal reflux disease) Pain, joint, knee, left Seasonal allergies - Surgical History Surgical History: Surgical History (Last Reviewed 06/08/18 @ 23:35 by Kenny Martínez MD) History of knee replacement No history of previous surgery - Tobacco History Second Hand Smoke Exposure: No Smoking Status: Never smoker - Alcohol History How Often Do You Have a Drink Containing Alcohol: Never - Substance Use History Substance History: No History of Abuse - Travel History Recent Travel in the [place] Within the Last 8 Weeks: No Recent Travel Out of the Country Within the Last 8 Weeks: No - Immunization History Tetanus Immunization: Unsure Medications and Allergies Active Medications: Active Medications Acetaminophen (Tylenol) 650 mg PO Q4H PRN PRN Reason: Temp > 100.4 Hydrocodone Bitart/Acetaminophen ([place] 10/325) 1 tab PO Q4H PRN PRN Reason: Acute Pain Aspirin (Aspirin Chew) 81 mg PO BID [facility] Bisacodyl (Dulcolax Supp) 10 mg RECTAL DAILY PRN PRN Reason: SEVERE CONSITIPATION Piperacillin/Tazobactam/Dextrose (Zosyn 3.375 Gm Premix) 50 mls @ 100 mls/hr IV.SIG Q6H [facility] Pharmacy Profile Note (Vancomycin Consult Pharmacy) 0 mls @ 0 mls/hr OTHER UNSCH [facility] Sodium Chloride (1/2 Normal Saline Inj) 1,000 mls @ 75 mls/hr IV.CONT .[id number] [facility] Ondansetron HCl (Zofran Inj) 4 mg IV.PUSH Q6H PRN PRN Reason: NAUSEA OR VOMITING Senna/Docusate Sodium (Marifer-Colace) 1 tab PO BID [facility] Sennosides (Senokot) 17.2 mg PO Q12H PRN PRN Reason: Moderate Constipation Allergies Allergy/AdvReac Type Severity Reaction Status Date / Time meloxicam [From [facility]] Allergy Intermediate Itching Verified 06/08/18 19:31 Home Medications Medication Instructions Recorded Confirmed Type hydrocodone-acetaminophen 1 tab PO BID PRN 05/27/18 06/08/18 History Exam Vital signs: Vital Signs 06/08/18 19:26 06/08/18 20:15 Temperature 98.6 F Pulse Rate 68 Respiratory Rate 16 Blood Pressure 143/63 H Pulse Oximetry 100 97 Intake & Output 06/08/18 06/08/18 06/09/18 06:59 18:59 06:59 Weight 63.503 kg Narrative: GENERAL: SKIN: Warm and dry. HEAD: Normocephalic. EYES: No scleral icterus. No injection or drainage. NECK: Supple, trachea midline. No JVD or lymphadenopathy. CARDIOVASCULAR: Regular rate and rhythm without murmurs, gallops, or rubs. RESPIRATORY: Breath sounds equal bilaterally. No accessory muscle use. GASTROINTESTINAL: Abdomen soft, non-tender, nondistended. MUSCULOSKELETAL:plus 2 pulses extremities,no calf tenderness,with 2 plus edema left lower extremity with eccymosis thigh down to foot,also calf tenderness BACK: Nontender without obvious deformity. No CVA tenderness. Results - Labs CBC & Chem 7: 06/08/18 20:30 06/08/18 20:30 Labs: Laboratory Results - last 24 hr 06/08/18 06/08/18 06/08/18 20:15 20:30 20:30 WBC 5.2 RBC 2.86 L Hgb 8.7 L Hct 25.3 L MCV 88.7 MCH 30.4 MCHC 34.2 RDW 14.2 Plt Count 320 MPV 7.5 Neut % (Auto) 56.4 Lymph % (Auto) 30.9 [place] % (Auto) 8.9 H Eos % (Auto) 3.3 Baso % (Auto) 0.5 Neut # (Auto) 2.9 Lymph # (Auto) 1.6 [place] # (Auto) 0.5 Eos # (Auto) 0.2 Baso # (Auto) 0.0 WBC Differential . Differential Comment Auto diff final ESR PT 10.3 INR 1.0 APTT 28.7 Sodium Potassium Chloride Carbon Dioxide Anion Gap BUN Creatinine Estimated GFR Random Glucose Lactic Acid Calcium Magnesium Total Bilirubin AST ALT Alkaline Phosphatase Total Creatine Kinase Troponin I C-Reactive Protein Total Protein Albumin Lipase Urine Color Colorless Urine Clarity Clear Urine pH 7.0 Ur Specific [place] 1.002 Urine Protein Negative Urine Glucose (UA) Negative Urine Ketones Negative Urine Occult Blood Negative Urine Nitrate Negative Urine Bilirubin Negative Urine Urobilinogen Less than 2 Ur Leukocyte Esterase Small H Urine WBC 1 Ur Squamous Epith Cells <1 Urine Bacteria Rare H Urine Mucus Few H Micro UA Comment Culture not ind Ur Microscopic Review Not Reportable Urine Culture Comments Culture not ind 06/08/18 06/08/18 06/08/18 20:30 20:30 20:30 WBC RBC Hgb Hct MCV MCH MCHC RDW Plt Count MPV Neut % (Auto) Lymph % (Auto) [place] % (Auto) Eos % (Auto) Baso % (Auto) Neut # (Auto) Lymph # (Auto) [place] # (Auto) Eos # (Auto) Baso # (Auto) WBC Differential Differential Comment ESR 85 H PT INR APTT Sodium 139 Potassium 4.1 Chloride 104 Carbon Dioxide 25.9 Anion Gap 9 BUN 15 Creatinine 0.67 Estimated GFR 89 Random Glucose 99 Lactic Acid 1.0 Calcium 8.6 Magnesium 2.4 Total Bilirubin 0.8 AST 20 ALT 29 Alkaline Phosphatase 140 H Total Creatine Kinase 65 Troponin I Less than 0.02 L C-Reactive Protein 3.50 H Total Protein 7.7 Albumin 3.4 Lipase 83 Urine Color Urine Clarity Urine pH Ur Specific [place] Urine Protein Urine Glucose (UA) Urine Ketones Urine Occult Blood Urine Nitrate Urine Bilirubin Urine Urobilinogen Ur Leukocyte Esterase Urine WBC Ur Squamous Epith Cells Urine Bacteria Urine Mucus Micro UA Comment Ur Microscopic Review Urine Culture Comments - Imaging Impressions Chest X-Ray 06/08/18 20:06 CONCLUSION: The lungs are clear. Venous Doppler Study 06/08/18 20:06 CONCLUSION: 1. The study is negative for lower extremity deep venous thrombosis. - ECG Interpretation: no acute findings Caprini VTE Risk Assessment Caprini VTE Risk Assessment: Moderate/High Risk (score >= 2) Caprini Risk Assessment Model: Point Value = 1 Point Value = 2 Point Value = 3 Point Value = 5 Age 41-60 Minor surgery BMI > 25 kg/m2 Swollen legs Varicose veins or History of unexplained or recurrent spontaneous Oral contraceptives or hormone replacement Sepsis (< 1 month) Serious lung disease, including pneumonia (< 1 month) Abnormal pulmonary function Acute myocardial infarction Congestive heart failure (< 1 month) History of inflammatory bowel disease Medical patient at bed rest Age 61-74 Arthroscopic surgery Major open surgery (> 45 min) Laparoscopic surgery (> 45 min) Malignancy Confined to bed (> 72 hours) Immobilizing plaster cast Central venous access Age >= 75 History of VTE Family history of VTE Factor V Leiden Prothrombin [id number] Lupus anticoagulant Anticardiolipin antibodies Elevated serum homocysteine Heparin-induced thrombocytopenia Other congenital or acquired thrombophilia Stroke (< 1 month) Elective arthroplasty Hip, pelvis, or leg fracture Acute spinal cord injury (< 1 month) Prophylaxis Regimen: Total Risk Factor Score Risk Level Prophylaxis Regimen 0-1 Low Early ambulation 2 Moderate Order ONE of the following: *Sequential Compression Device (SCD) *Heparin 5000 units SQ BID 3-4 Higher Order ONE of the following medications: *Heparin 5000 units SQ TID *Enoxaparin/Lovenox 40 mg SQ daily (WT < 150 kg, CrCl > 30 mL/min) *Enoxaparin/Lovenox 30 mg SQ daily (WT < 150 kg, CrCl > 10-29 mL/min) *Enoxaparin/Lovenox 30 mg SQ BID (WT < 150 kg, CrCl > 30 mL/min) AND/OR *Sequential Compression Device (SCD) 5 or more Highest Order ONE of the following medications: *Heparin 5000 units SQ TID (Preferred with Epidurals) *Enoxaparin/Lovenox 40 mg SQ daily (WT < 150 kg, CrCl > 30 mL/min) *Enoxaparin/Lovenox 30 mg SQ daily (WT < 150 kg, CrCl > 10-29 mL/min) *Enoxaparin/Lovenox 30 mg SQ BID (WT < 150 kg, CrCl > 30 mL/min) AND *Sequential Compression Device (SCD) Assessment and Plan - Assessment (1) Cellulitis Code(s): L03.90 - Cellulitis, unspecified Status: Acute Plan: start IV Zosyn and Vancomycin iv fluid consult ortho (2) S/P left knee surgery Code(s): Z98.890 - Other specified postprocedural states Status: Acute Plan: as above consult orthopedics empiric lovenox pending further studies and ortho evaluation - Plan further plan as case develops Code Status: full Discussed Condition With: patient and family
[2018-06-09] MEDS: Sodium Chloride 0.45 % Inj 1,000 ML IV.CONT SCH ×2 (02:00→16:24)
[2018-06-09] MEDS: Piperacil/Tazo 3.375 GM Premix 50 ML IV.SIG SCH ×3 (05:34→19:01)
--- NOTE | 2018-06-09 08:14 | P.CONOP ---
[facility] Orthopedics Consult Note - [facility] Consult date: 06/09/18 Requesting physician: Kenny Martínez Chief complaint: Post Op Infection s/p Left Knee Replacement Narrative: The patient is a 62 year old f women presents to the [facility] emergency department with a history of reportedly feeling unwell since yesterday. She is recently postop status post left knee replacement on June 01, [address] Addy Johnson. Her follow-up appointment is scheduled for June 14. The patient reports that since yesterday she developed swelling, pain, increased ecchymosis down into the calf, ankle, and foot. She denies any new injuries. She reports that she has had subjective fevers and her home health nurse earlier today took her temperature which was elevated to 101. She reports that since having the surgery she is on a low-dose aspirin daily. She is not on any other anticoagulation. She reports taking hydrocodone as needed for pain. She is not on any other medications. She reports that since having the surgery she has noticed that when she coughs she has a pain in the left lateral chest. She denies having any shortness of breath. On review of systems otherwise, the patient denies having any congestion, neck pain, abdominal pain, vomiting, or neurologic symptoms. Patient denies having any dysuria or urinary urgency, however she does report having urinary frequency recently. The patient additionally reports having a single episode of loose stools earlier today. Based on clinical presentation will admit for IV antibiotics. I have been asked to see the patient in consultation regarding this condition Review of Systems All other systems reviewed negative except as stated in [facility] - History History Provided By: Patient - Medical History Medical History: Medical History (Last Reviewed 06/08/18 @ 23:35 by Kenny Martínez MD) Anxiety and depression GERD (gastroesophageal reflux disease) Pain, joint, knee, left Seasonal allergies - Surgical History Surgical History: Surgical History (Last Reviewed 06/08/18 @ 23:35 by Kenny Martínez MD) History of knee replacement No history of previous surgery - Tobacco History Second Hand Smoke Exposure: No Smoking Status: Never smoker - Alcohol History How Often Do You Have a Drink Containing Alcohol: Never - Substance Use History Substance History: No History of Abuse - Travel History Recent Travel in the [place] Within the Last 8 Weeks: No Recent Travel Out of the Country Within the Last 8 Weeks: No - Immunization History Tetanus Immunization: Unsure Medications and Allergies Active Medications: Active Medications Acetaminophen (Tylenol) 650 mg PO Q4H PRN PRN Reason: Temp > 100.4 Hydrocodone Bitart/Acetaminophen ([place] 10/325) 1 tab PO Q4H PRN PRN Reason: Acute Pain Last Admin: 06/09/18 02:11 Dose: 1 tab Aspirin (Aspirin Chew) 81 mg PO BID [facility] Bisacodyl (Dulcolax Supp) 10 mg RECTAL DAILY PRN PRN Reason: SEVERE CONSITIPATION Enoxaparin Sodium (Lovenox Inj) 40 mg SQ DAILY [facility] Pharmacy Profile Note (Vancomycin Consult Pharmacy) 0 mls @ 0 mls/hr OTHER UNSCH [facility] Sodium Chloride (1/2 Normal Saline Inj) 1,000 mls @ 75 mls/hr IV.CONT .[id number] [facility] Last Infusion: 06/09/18 06:14 Dose: 75 mls/hr Piperacillin/Tazobactam/Dextrose (Zosyn 3.375 Gm Premix) 50 mls @ 100 mls/hr IV.SIG Q6H [facility] Last Infusion: 06/09/18 06:14 Dose: Infused Ondansetron HCl (Zofran Inj) 4 mg IV.PUSH Q6H PRN PRN Reason: NAUSEA OR VOMITING Senna/Docusate Sodium (Marifer-Colace) 1 tab PO BID [facility] Sennosides (Senokot) 17.2 mg PO Q12H PRN PRN Reason: Moderate Constipation Allergies Allergy/AdvReac Type Severity Reaction Status Date / Time meloxicam [From [facility]] Allergy Intermediate Itching Verified 06/08/18 19:31 Home Medications Medication Instructions Recorded Confirmed Type hydrocodone-acetaminophen 1 tab PO BID PRN 05/27/18 06/08/18 History Exam Vital signs: Vital Signs 06/08/18 19:26 06/08/18 20:15 06/09/18 01:32 Temperature 98.6 F Pulse Rate 68 Respiratory Rate 16 14 Blood Pressure 143/63 H Pulse Oximetry 100 97 06/09/18 04:00 Temperature 97.9 F Pulse Rate 64 Respiratory Rate 14 Blood Pressure 98/47 L Pulse Oximetry 97 Intake & Output 06/08/18 06/09/18 06/09/18 18:59 06:59 18:59 Intake Total 1350 / 1350 Balance 1350 / 1350 Weight 63.503 kg Intake: IV 1350 / 1350 Zosyn 3.375 GM Premix 50 ML @ 100 / 100 100 mls/hr IV.SIG Q6H [facility] Rx#: [id number] NS Inj 1,000 ML @ Wide Open IV. 1000 / 1000 SIG BOLUS ONE Rx#:[id number] Vancomycin Inj 1,000 MG In NS 250 / 250 Inj 250 ML @ 250 mls/hr IV.SIG ONCE ONE Rx#:[id number] Other: # Voids 1 Weight On Admission 63.503 kg Narrative: HEENT: Normocephalic atraumatic pupils equal round reactive. NECK: Supple. No abnormal masses. Full range of motion. CHEST: Clear to auscultation with no rales or rhonchi's or wheezes. HEART: Regular rate and rhythm. No murmurs. ABDOMEN: Soft, nontender, no masses. Normal active bowel sounds. GENITOURINARY: Deferred MUSCULOSKELETAL: Left knee incision looks fine. No significant redness. There is moderate to advanced swelling of the entire leg. There is ecchymosis involving the thigh, posterior leg extending into the calf. This has the appearance of fairly significant postoperative soft tissue ecchymosis related to the tourniquet at the thigh and postoperative bleeding. Swelling appears to be decreasing but not increasing. There is no significant drainage from the knee incision. There is no calf tenderness. There is mild warmth. Results - Labs Result Diagrams: 06/08/18 20:30 06/08/18 20:30 Labs: Laboratory Results - last 24 hr 06/08/18 06/08/18 06/08/18 20:15 20:30 20:30 WBC 5.2 RBC 2.86 L Hgb 8.7 L Hct 25.3 L MCV 88.7 MCH 30.4 MCHC 34.2 RDW 14.2 Plt Count 320 MPV 7.5 Neut % (Auto) 56.4 Lymph % (Auto) 30.9 [place] % (Auto) 8.9 H Eos % (Auto) 3.3 Baso % (Auto) 0.5 Neut # (Auto) 2.9 Lymph # (Auto) 1.6 [place] # (Auto) 0.5 Eos # (Auto) 0.2 Baso # (Auto) 0.0 WBC Differential . Differential Comment Auto diff final ESR PT 10.3 INR 1.0 APTT 28.7 Sodium Potassium Chloride Carbon Dioxide Anion Gap BUN Creatinine Estimated GFR Random Glucose Lactic Acid Calcium Magnesium Total Bilirubin AST ALT Alkaline Phosphatase Total Creatine Kinase Troponin I C-Reactive Protein Total Protein Albumin Lipase Urine Color Colorless Urine Clarity Clear Urine pH 7.0 Ur Specific [place] 1.002 Urine Protein Negative Urine Glucose (UA) Negative Urine Ketones Negative Urine Occult Blood Negative Urine Nitrate Negative Urine Bilirubin Negative Urine Urobilinogen Less than 2 Ur Leukocyte Esterase Small H Urine WBC 1 Ur Squamous Epith Cells <1 Urine Bacteria Rare H Urine Mucus Few H Micro UA Comment Culture not ind Ur Microscopic Review Not Reportable Urine Culture Comments Culture not ind 06/08/18 06/08/18 06/08/18 20:30 20:30 20:30 WBC RBC Hgb Hct MCV MCH MCHC RDW Plt Count MPV Neut % (Auto) Lymph % (Auto) [place] % (Auto) Eos % (Auto) Baso % (Auto) Neut # (Auto) Lymph # (Auto) [place] # (Auto) Eos # (Auto) Baso # (Auto) WBC Differential Differential Comment ESR 85 H PT INR APTT Sodium 139 Potassium 4.1 Chloride 104 Carbon Dioxide 25.9 Anion Gap 9 BUN 15 Creatinine 0.67 Estimated GFR 89 Random Glucose 99 Lactic Acid 1.0 Calcium 8.6 Magnesium 2.4 Total Bilirubin 0.8 AST 20 ALT 29 Alkaline Phosphatase 140 H Total Creatine Kinase 65 Troponin I Less than 0.02 L C-Reactive Protein 3.50 H Total Protein 7.7 Albumin 3.4 Lipase 83 Urine Color Urine Clarity Urine pH Ur Specific [place] Urine Protein Urine Glucose (UA) Urine Ketones Urine Occult Blood Urine Nitrate Urine Bilirubin Urine Urobilinogen Ur Leukocyte Esterase Urine WBC Ur Squamous Epith Cells Urine Bacteria Urine Mucus Micro UA Comment Ur Microscopic Review Urine Culture Comments - Diagnostic results Imaging: Impressions Chest X-Ray 06/08/18 20:06 CONCLUSION: The lungs are clear. Venous Doppler Study 06/08/18 20:06 CONCLUSION: 1. The study is negative for lower extremity deep venous thrombosis. Assessment and Plan - Assessment and Plan Status post left total knee arthroplasty, recent. Elevated Westergren sed rate and C-reactive protein. History of fever to 101 degree. Possible infection left leg. PLAN: The patient's white blood cell count is normal with an elevated sed rate at 85 and elevated C-reactive protein. At first look, this does not appear to be infection. This may represent reaction to hematoma/mild rhabdomyolysis from recent surgical treatment. IV antibiotics are not unreasonable and I agree. I am resistant to going back to surgery based on this information. That might lead to an infection where I have no good clinical evidence of infection at this time. Blood cultures are reasonable. Consider serologic testing for low-grade rhabdomyolysis. The patient should be admitted and observed. I will follow with you while she is in the hospital
--- NOTE | 2018-06-09 08:34 | P.PNIM ---
Subjective Interval history: No new complaints Pain is controlled Physical Exam Vital signs: Last Vital Signs Temp 97.9 F 06/09/18 04:00 Pulse 64 06/09/18 04:00 Resp 14 06/09/18 04:00 BP 98/47 L 06/09/18 04:00 Pulse Ox 97 06/09/18 04:00 Narrative: GENERAL: NAD, AAOx3 SKIN: There is ecchymosis involving the thigh, posterior leg extending into the left calf. No significant drainage from the knee incision. There is mild warmth, no significant erythema. CARDIO: Regular. RESP: CTA bilaterally. No accessory muscle use. ABD: +BS, soft, non-tender, nondistended. EXT: There is moderate swelling of the entire left leg. There is no calf tenderness. Results Labs CBC & Chem 7: 06/08/18 20:30 06/08/18 20:30 Assessment and Plan Assessment (1) Cellulitis: Code(s): L03.90 - Cellulitis, unspecified Status: Acute (2) S/P left knee surgery: Code(s): Z98.890 - Other specified postprocedural states Status: Acute Plan Swelling and possible cellulitis left knee s/p Left TKA - Pt is a 62 y/o female who recently underwent left TKA on 06/01/[address] Johnson. - [place] [facility] [place] with reports of not feeling well since 06/07/18. The patient reported that starting on 06/07/18 she developed swelling, pain, increased ecchymosis down into the left calf, ankle, and foot. She denies any new injuries. She reports that she has had subjective fevers and on the day of admission [facility] nurse took her temperature which was elevated to 101. She reports that since having the surgery she is on a low-dose aspirin daily. - Labs in the ED revealed an elevated ESR of 85 and an elevated CRP of 3.50 - Total CK level was 65 in the ED - Her WBC count was normal at admission and she has been afebrile since admission. - LE Doppler US was negative for DVT - Pt was started on IV Vancomycin and Zosyn for suspected cellulitis - Orthopedic surgery was consulted. No surgical intervention planned at this time. - Repeat labs this morning. - IVF ordered - PT evaluation - Pt was continued on ASA 81mg BID at admission - DVT prophylaxis with Lovenox Progress Note: Quality VTE Deep Vein Thrombosis/Pulmonary Embolism Present on Admission: No _ (1) Cellulitis Qualifiers: Site of cellulitis: Site of cellulitis of extremity: Site of cellulitis of trunk: Laterality:
[2018-06-09] MEDS: Enoxaparin Inj 40 MG/0.4 ML Syringe SQ SCH (08:44)
[2018-06-09] MEDS: Senna/Docusate Sodium 8.6/50 MG Tablet PO SCH ×2 (08:45→20:20)
[2018-06-09 09:02] LABS: Baso % (Auto) 0.6 % (0.0-2.0); Eos # (Auto) 0.2 th/mm3 (0.0-0.4); Eos % (Auto) 3.9 % (0.0-4.0); Hematocrit 22.2 % (35.0-46.0); Hemoglobin 7.7 gm/dL (11.6-15.3); Lymph # (Auto) 1.7 th/mm3 (1.0-4.8); Lymph % (Auto) 39.5 % (9.0-44.0); Mean Corpuscular HGB Conc 34.5 % (32.0-36.0); Mean Corpuscular Hemoglobin 31.1 pg (27.0-34.0); Mean Corpuscular Volume 90.1 fL (80.0-100.0); Mean Platelet Volume 7.6 fL (7.0-11.0); Mono # (Auto) 0.4 th/mm3 (0.0-0.9); Mono % (Auto) 9.5 % (0.0-8.0); Neut % (Auto) 46.5 % (16.0-70.0); Platelet Count 282 th/mm3 (150-450); Red Blood Count 2.47 mil/mm3 (4.00-5.30); Red Cell Distribution Width 14.1 % (11.6-17.2); White Blood Count 4.2 th/mm3 (4.0-11.0)
[2018-06-09 09:21] LABS: Anion Gap 6 meq/L (5-15); Blood Urea Nitrogen 10 mg/dL (7-18); Calcium 7.9 mg/dL (8.5-10.1); Carbon Dioxide 27.7 meq/L (21.0-32.0); Chloride 107 meq/L (98-107); Glomerular Filtration Rate Greater Than 89 mL/min (>89); Glucose,Random 87 mg/dL (74-106); Potassium 3.6 meq/L (3.5-5.1); Sodium 141 meq/L (136-145)
--- NOTE | 2018-06-09 11:43 | ECG ---
Date Performed: 06/08/2018 Time Performed: 20:26:50 PTAGE: 62 years EKG: Sinus rhythm NONSPECIFIC T-WAVE ABNORMALITY BORDERLINE ECG NO PREVIOUS TRACING DOCTOR: Rafa Garsia Interpretating Date/Time 06/09/2018 11:41:16
--- NOTE | 2018-06-09 12:46 | XR ---
EXAM DATE: 06/09/2018 12:42 PM EST AGE/SEX: 62 years / Female INDICATIONS: Left knee pain, swelling, bruising, post discharge from hospital for total knee replace ment on 06/01/2018. CLINICAL DATA: This is the patient's initial encounter. Patient reports that signs and symptoms have been present for 1 day and indicates a pain score of Nonresponsive. MEDICAL/SURGICAL HISTORY: Gastroesophageal reflux disease. Total knee replacement, left. [place] [facility] [place] 2[place]. . FINDINGS: Status post total knee arthroplasty with a large amount of soft tissue swelling about the knee withou t significant joint effusion. CONCLUSION: Soft tissue swelling without significant joint effusion Electronically signed by: Satnam Haley MD 06/09/2018 12:45 PM EST
[2018-06-09] MEDS: Vancomycin Inj 1,000 MG in Sodium Chlor 0.9% Inj 250 ML IV.SIG SCH (19:05)
[2018-06-10] MEDS: Piperacil/Tazo 3.375 GM Premix 50 ML IV.SIG SCH ×5 (00:59→23:40)
[2018-06-10 04:06] LABS: Baso % (Auto) 0.6 % (0.0-2.0); Eos # (Auto) 0.2 th/mm3 (0.0-0.4); Eos % (Auto) 3.3 % (0.0-4.0); Hematocrit 30.3 % (35.0-46.0); Hemoglobin 10.5 gm/dL (11.6-15.3); Lymph # (Auto) 1.1 th/mm3 (1.0-4.8); Lymph % (Auto) 23.7 % (9.0-44.0); Mean Corpuscular HGB Conc 34.7 % (32.0-36.0); Mean Corpuscular Hemoglobin 30.4 pg (27.0-34.0); Mean Corpuscular Volume 87.6 fL (80.0-100.0); Mean Platelet Volume 7.5 fL (7.0-11.0); Mono # (Auto) 0.4 th/mm3 (0.0-0.9); Mono % (Auto) 8.5 % (0.0-8.0); Neut % (Auto) 63.9 % (16.0-70.0); Platelet Count 297 th/mm3 (150-450); Red Blood Count 3.45 mil/mm3 (4.00-5.30); Red Cell Distribution Width 14.7 % (11.6-17.2); White Blood Count 4.7 th/mm3 (4.0-11.0)
[2018-06-10 04:19] LABS: Anion Gap 7 meq/L (5-15); Blood Urea Nitrogen 10 mg/dL (7-18); Calcium 8.1 mg/dL (8.5-10.1); Carbon Dioxide 27.5 meq/L (21.0-32.0); Chloride 107 meq/L (98-107); Glomerular Filtration Rate Greater Than 89 mL/min (>89); Glucose,Random 118 mg/dL (74-106); Magnesium 2.3 mg/dL (1.5-2.5); Potassium 3.7 meq/L (3.5-5.1); Sodium 141 meq/L (136-145)
[2018-06-10] MEDS: Sodium Chloride 0.45 % Inj 1,000 ML IV.CONT SCH ×2 (04:24→18:56)
[2018-06-10] MEDS: Senna/Docusate Sodium 8.6/50 MG Tablet PO SCH ×2 (09:08→20:30)
[2018-06-10] MEDS: Enoxaparin Inj 40 MG/0.4 ML Syringe SQ SCH (09:08)
--- NOTE | 2018-06-10 10:21 | P.PNIM ---
Subjective Interval history: Pt with slightly less swelling today She is eating and drinking according to her son at bedside Still painful Physical Exam Vital signs: Last Vital Signs Temp 97.7 F 06/10/18 07:52 Pulse 60 06/10/18 07:52 Resp 16 06/10/18 07:52 BP 159/70 H 06/10/18 07:52 Pulse Ox 98 06/10/18 07:52 Narrative: GENERAL: NAD, AAOx3 SKIN: There is ecchymosis involving the thigh, posterior leg extending into the left calf and down to the foot. No significant drainage from the knee incision. There is mild warmth, no significant erythema. CARDIO: Regular. RESP: CTA bilaterally. No accessory muscle use. ABD: +BS, soft, non-tender, nondistended. EXT: There is mild to moderate swelling of the entire left leg. There is no calf tenderness. Good pulses Results Labs CBC & Chem 7: 06/10/18 03:28 06/10/18 03:28 Imaging Chest X-Ray 06/08/18 20:06 CONCLUSION: The lungs are clear. Venous Doppler Study 06/08/18 20:06 CONCLUSION: 1. The study is negative for lower extremity deep venous thrombosis. Knee X-Ray 06/09/18 00:00 CONCLUSION: Soft tissue swelling without significant joint effusion Assessment and Plan Assessment (1) Cellulitis: Code(s): L03.90 - Cellulitis, unspecified Status: Acute (2) S/P left knee surgery: Code(s): Z98.890 - Other specified postprocedural states Status: Acute Plan Swelling and possible cellulitis left knee s/p Left TKA - Pt is a 62 y/o female who recently underwent left TKA on 06/01/[address] Johnson. - She presented to the ED at [facility] on 06/08/18 with reports of not feeling well since 06/07/18. The patient reported that starting on 06/07/18 she developed swelling, pain, increased ecchymosis down into the left calf, ankle, and foot. She denies any new injuries. She reports that she has had subjective fevers and on the day of admission [facility] nurse took her temperature which was elevated to 101. She reports that since having the surgery she is on a low-dose aspirin daily. - Labs in the ED revealed an elevated ESR of 85 and an elevated CRP of 3.50 - Total CK level was 65 in the ED - Her WBC count was normal at admission and she has been afebrile since admission. - LE Doppler US was negative for DVT - Pt was started on IV Vancomycin and Zosyn for suspected cellulitis - Orthopedic surgery was consulted. No surgical intervention planned at this time. - Davion Xray (06/09/18) --> Soft tissue swelling without significant joint effusion - Repeat labs this morning are stable - Stop IVF - PT evaluation - DVT prophylaxis with Lovenox Attending Attestation Patient examined. Assessment and plan formulated with Nohemi Briggs PA-C. I agree with the above. cont abx. d/c home tomorrow on po abx and f/u. Progress Note: Quality VTE Deep Vein Thrombosis/Pulmonary Embolism Present on Admission: No _ (1) Cellulitis Qualifiers: Laterality: Site of cellulitis: Site of cellulitis of extremity: Site of cellulitis of trunk:
[2018-06-10] MEDS: Vancomycin Inj 1,000 MG in Sodium Chlor 0.9% Inj 250 ML IV.SIG SCH (14:01)
[2018-06-10] MEDS ORDERED: Melatonin 5 MG Tablet PO PRN (23:19)
[2018-06-11] MEDS: Sodium Chloride 0.45 % Inj 1,000 ML IV.CONT SCH (04:52)
[2018-06-11] MEDS: Piperacil/Tazo 3.375 GM Premix 50 ML IV.SIG SCH ×2 (05:25→13:19)
[2018-06-11] MEDS ORDERED: Pharmacy Ordered Lab Info OTHER ONE (05:45)
[2018-06-11] MEDS: Vancomycin Inj 1,000 MG in Sodium Chlor 0.9% Inj 250 ML IV.SIG SCH (06:01)
[2018-06-11 06:23] LABS: Glomerular Filtration Rate Greater Than 89 mL/min (>89); Vancomycin,Trough 5.1 mcg/mL (5.0-10.0)
--- NOTE | 2018-06-11 07:37 | P.PNOP ---
Subjective Interval history: Doing well. Very little pain. Son at bedside Physical Exam Vital signs: Vital Signs 06/10/18 07:52 06/10/18 16:00 06/10/18 20:00 Temperature 97.7 F 98.1 F 97.3 F L Pulse Rate 60 66 77 Respiratory Rate 16 17 18 Blood Pressure 159/70 H 132/70 90/56 L Pulse Oximetry 98 100 97 06/11/18 00:00 06/11/18 04:00 Temperature 97.9 F 97.6 F Pulse Rate 61 60 Respiratory Rate 18 18 Blood Pressure 106/56 L 142/62 H Pulse Oximetry 96 98 Intake & Output 06/10/18 06/11/18 06/11/18 18:59 06:59 18:59 Intake Total 1350 / 1350 1150 / 1150 250 / 250 Balance 1350 / 1350 1150 / 1150 250 / 250 Intake: IV 1350 / 1350 1150 / 1150 250 / 250 1/2 Normal Saline Inj 1,000 ML 1000 / 1000 1000 / 1000 @ 75 mls/hr IV.CONT .[id number] AVTAR Rx#:[id number] Zosyn 3.375 GM Premix 50 ML @ 100 / 100 150 / 150 100 mls/hr IV.SIG Q6H AVTAR Rx#: [id number] Vancomycin Inj 1,000 MG In NS 250 / 250 250 / 250 Inj 250 ML @ 250 mls/hr IV.SIG Q18H AVTAR Rx#:[id number] Other: Date of Last Bowel Movement 06/10/18 Narrative: Ecchymosis evolving. Swelling decreasing. Incision looks completely benign. No redness. Minimal warmth. No significant effusion. No drainage. No calf tenderness. Neuro exam normal Results - Labs CBC & Chem 7: 06/10/18 03:28 06/11/18 05:33 Laboratory Results - last 24 hr 06/11/18 05:33 Creatinine 0.62 Estimated GFR Greater than 89 Vancomycin Trough 5.1 Microbiology 06/08/18 20:30 Blood - Peripheral Aerobic Blood Culture - Preliminary No growth in 2 days 06/08/18 20:30 Blood - Peripheral Anaerobic Blood Culture - Preliminary No growth in 2 days 06/08/18 20:25 Blood - Peripheral Aerobic Blood Culture - Preliminary No growth in 2 days 06/08/18 20:25 Blood - Peripheral Anaerobic Blood Culture - Preliminary No growth in 2 days Assessment and Plan - Assessment and Plan Status post left total knee arthroplasty, recent. Elevated Westergren sed rate and C-reactive protein. History of fever to 101 degree. Possible infection left leg, doubtful PLAN: No clear evidence of infectious process. WBC still normal with no evidence of a left shift. Likely this is myositis/fasciitis related to significant postoperative bleeding from total knee replacement. I have seen this before. Lovenox not unreasonable, but need to be careful about history of bleeding. Weightbearing as tolerated. Follow-up next week in the office. Suture removal at that time and x-ray. Physical therapy. Orthopedically stable
[2018-06-11] MEDS: Enoxaparin Inj 40 MG/0.4 ML Syringe SQ SCH (09:37)
[2018-06-11] MEDS: Senna/Docusate Sodium 8.6/50 MG Tablet PO SCH (10:13)
--- NOTE | 2018-06-11 11:45 | P.PNIM ---
Subjective Interval history: eager for dc . feels better. Physical Exam Vital signs: Last Vital Signs Temp 97.7 F 06/11/18 11:34 Pulse 76 06/11/18 11:34 Resp 18 06/11/18 11:34 BP 117/67 06/11/18 11:34 Pulse Ox 95 06/11/18 11:34 Narrative: GENERAL: NAD, AAOx3 SKIN: There is ecchymosis involving the thigh, posterior leg extending into the left calf and down to the foot. No significant drainage from the knee incision. There is mild warmth, no significant erythema. incision w/out sign of infection CARDIO: Regular. RESP: CTA bilaterally. No accessory muscle use. ABD: +BS, soft, non-tender, nondistended. EXT: There is mild to moderate swelling of the entire left leg. There is no calf tenderness. Good pulses Results Labs CBC & Chem 7: 06/10/18 03:28 06/11/18 05:33 Assessment and Plan Assessment (1) Cellulitis: Code(s): L03.90 - Cellulitis, unspecified Status: Acute (2) S/P left knee surgery: Code(s): Z98.890 - Other specified postprocedural states Status: Acute Plan s/p Left TKA left knee questionable cellulitis on admission. might be fasciitis/myositis per ortho. - Pt is a 62 y/o female who recently underwent left TKA on 06/01/[address] Johnson. - She presented to the ED at [facility] [place] on 06/08/18 with reports of not feeling well since 06/07/18. The patient reported that starting on 06/07/18 she developed swelling, pain, increased ecchymosis down into the left calf, ankle, and foot. She denies any new injuries. She reports that she has had subjective fevers and on the day of admission [facility] nurse took her temperature which was elevated to 101. She reports that since having the surgery she is on a low-dose aspirin daily. - Labs in the ED revealed an elevated ESR of 85 and an elevated CRP of 3.50 - Total CK level was 65 in the ED - Her WBC count was normal at admission and she has been afebrile since admission. - LE Doppler US was negative for DVT - Pt was started on IV Vancomycin and Zosyn for suspected cellulitis - Orthopedic surgery was consulted. No surgical intervention planned at this time. - Davion Xray (06/09/18) --> Soft tissue swelling without significant joint effusion Pt much improved. complete the abx course for total 7 days.. f/u ortho clinic next week. - DVT prophylaxis with Lovenox Progress Note: Quality VTE Deep Vein Thrombosis/Pulmonary Embolism Present on Admission: No _ (1) Cellulitis Qualifiers: Laterality: Site of cellulitis: Site of cellulitis of extremity: Site of cellulitis of trunk:
--- NOTE | 2018-06-11 11:54 | P.DCO ---
Diagnosis (1) Cellulitis: Status: Acute (2) S/P left knee surgery: Status: Acute Physical Therapy Order: Evaluate and treat and Improve ambulation Home Health Nursing Order: Medical education, Signs/symptoms of disease process, Medication education-adverse effect and Nursing assessment with vital signs Case Management Consult Case Management Consult-Home Health: Yes I have seen patient Thomas Pugh on 06/11/18. My clinical findings support the need for the requested home health care services because: I certify that my clinical findings support that this patient is homebound because: _ (1) Cellulitis Qualifiers: Site of cellulitis: Site of cellulitis of extremity: Site of cellulitis of trunk: Laterality:
[2018-06-11 16:05] VITALS: BP 154/71; PULSE 69; RESP 20; TEMP 98.2; O2SAT 97
[2018-06-11] MEDS ORDERED: Vancomycin Inj 1,000 MG in Sodium Chlor 0.9% Inj 250 ML IV.SIG SCH (17:00)
[2018-06-13] MEDS ORDERED: Pharmacy Ordered Lab Info OTHER ONE (04:45)
--- NOTE | 2018-07-07 18:00 | P.DS ---
DS: Providers Date of admission: 06/08/18 22:36 Primary care physician: Staci Crawford Consults: 06/08/18 22:36 Consult to Orthopedic Surgery Routine Consulting Provider: Wily Morse Cake Inspector:: Addy Johnson Patient known to:: Addy Johnson Reason for Consultation: Suspected left leg post op infection s/p knee replacement Notified:: Service Spoke with:: darius Date Notified:: 06/09/18 Time Notified:: 01:51 Comments:: call ctr aware pt known to dr michelle morse learning operations specialist for ortho group Ordering Provider: VERNELL 06/09/18 13:21 HUB Only Consult Order Routine Consulting Provider: [facility] Brief History from admission: The patient is a 62 year old f women presents to the [facility] emergency department with a history of reportedly feeling unwell since yesterday. She is recently postop status post left knee replacement on June 01, [address] Addy Johnson. Her follow-up appointment is scheduled for June 14. The patient reports that since yesterday she developed swelling, pain, increased ecchymosis down into the calf, ankle, and foot. She denies any new injuries. She reports that she has had subjective fevers and her home health nurse earlier today took her temperature which was elevated to 101. She reports that since having the surgery she is on a low-dose aspirin daily. She is not on any other anticoagulation. She reports taking hydrocodone as needed for pain. She is not on any other medications. She reports that since having the surgery she has noticed that when she coughs she has a pain in the left lateral chest. She denies having any shortness of breath. On review of systems otherwise, the patient denies having any congestion, neck pain, abdominal pain, vomiting, or neurologic symptoms. Patient denies having any dysuria or urinary urgency, however she does report having urinary frequency recently. The patient additionally reports having a single episode of loose stools earlier today. Based on clinical presentation will admit for IV antibiotics and consult to orthopedics . DS: Diagnosis Discharge Diagnosis (1) Cellulitis: Status: Acute (2) S/P left knee surgery: Status: Acute DS: Summary Assessment and Plan Assessment (1) Cellulitis: Code(s): L03.90 - Cellulitis, unspecified Status: Acute (2) S/P left knee surgery: Code(s): Z98.890 - Other specified postprocedural states Status: Acute Plan s/p Left TKA left knee questionable cellulitis on admission. might be fasciitis/myositis per ortho. - Pt is a 62 y/o female who recently underwent left TKA on 06/01/[address] Johnson. - She presented to the ED at [facility] on 06/08/18 with reports of not feeling well since 06/07/18. The patient reported that starting on 06/07/18 she developed swelling, pain, increased ecchymosis down into the left calf, ankle, and foot. She denies any new injuries. She reports that she has had subjective fevers and on the day of admission [facility] nurse took her temperature which was elevated to 101. She reports that since having the surgery she is on a low-dose aspirin daily. - Labs in the ED revealed an elevated ESR of 85 and an elevated CRP of 3.50 - Total CK level was 65 in the ED - Her WBC count was normal at admission and she has been afebrile since admission. - LE Doppler US was negative for DVT - Pt was started on IV Vancomycin and Zosyn for suspected cellulitis - Orthopedic surgery was consulted. No surgical intervention planned at this time. - Davion Xray (06/09/18) --> Soft tissue swelling without significant joint effusion Pt much improved. complete the abx course for total 7 days.. f/u ortho clinic next week. - DVT prophylaxis with Lovenox Time Spent with Patient Total time spent providing and/or coordinating discharge services: Quality: VTE Deep Vein Thrombosis/Pulmonary Embolism Present on Admission: No Results Impressions ITS Impressions Chest X-Ray 06/08/18 20:06 CONCLUSION: The lungs are clear. Venous Doppler Study 06/08/18 20:06 CONCLUSION: 1. The study is negative for lower extremity deep venous thrombosis. Knee X-Ray 06/09/18 00:00 CONCLUSION: Soft tissue swelling without significant joint effusion Discharge Plan Discharge Disposition Patient Disposition: Disch W/Home Health Service Discharge Condition Condition: Stable Discharge Order Discharge Orders: Discharge Order (Routine); Ordered 06/11/18 Ordered By: Yaw Villanueva Discharge Details Anticipated Discharge Date: 06/11/18 Discharge Comment: dc home today with family Physicians Team Primary Care Provider: Staci Crawford Attending Provider: Branden Crowley Other Providers: Wily Morse ; Elliott Barragan,Kerwin Rxs /Orders / Referrals /Forms Prescriptions: Continue hydrocodone-acetaminophen 10-325 mg Tablet 1 tab PO Q4H PRN (Reason: Acute Pain) Qty: 42 RF: 0 aspirin 81 mg Tablet,Chewable 81 mg PO BID Qty: 60 RF: 0 Discontinued hydrocodone-acetaminophen 5-325 mg Tablet 1 tab PO BID PRN (Reason: Pain) RF: 0 Referrals: Addy Johnson MD [Physician] - 06/14/18 10:10 am (Follow-up next week for office visit with Maria E or Dr. Daly. Set appointment before patient discharge today) Kerwin Lui [Agency] - See Instructions (Agency will call you on Thursday for visit time.) Staci Crawford MD [Primary Care Provider] - See Instructions (1 week f/u.) Discharge Instructions Additional Instructions: Your Health Problems: Goals to Promote Your Health: * To prevent worsening of your condition * To maintain your health at the optimal level Directions to Meet Your Goals: * Take your medications as prescribed * Follow your dietary instruction * Follow activity as directed * Keep your appointments as scheduled * Take your immunizations and boosters as scheduled * If your symptoms worsen call your PCP * If no PCP go to Urgent Care or Emergency Room Smoking is dangerous to your health. Avoid second hand smoke. You may reach the 24-hour crisis hotline for domestic abuse at . Status ED Status: Left Department Discharge Information Discharge Date/Time: 06/11/18 16:19
== END 2018-06-11 16:19 | disposition home health service (06) | DRG 558 ==
LOC: NEPC 19:23 → NEDA 22:36 → NEPGCP 06-09 01:01 → N05 06-10 14:39
PROVIDERS: ADMIT Hospitalist; ATTEND Hospitalist
DX: K21.9 Gastro-esophageal reflux disease without esophagitis; M62.82 Rhabdomyolysis; F41.9 Anxiety disorder, unspecified; F32.9 Major depressive disorder, single episode, unspecified; Z96.652 Presence of left artificial knee joint; M72.8 Other fibroblastic disorders; M60.9 Myositis, unspecified
CPT/HCPCS: 36430; 71010; 71045; 73564; 80048; 80053; 80202; 81001; 82550; 82565; 83605; 83690; 83735; 84484; 85025; 85610; 85651; 85652; 85730; 86140; 86850; 86900; 86901; 86923; 87040; 93005; 93971; 97110; 97163; 99285; J1650; J2543; J3370; J7030; J7050; P9016